=== PATIENT | male | born 1995 | race Caucasian/White ===

== ENCOUNTER 2021-06-15 18:39 | Emergency (ER) | payer BC, OTHER ==
[~2021-06-15] VITALS: Ht 188 cm; Wt 96.4 kg
[2021-06-15] MEDS ORDERED: HALOPERIDOL LACT 5 MG/ML VIAL. IVP ONE (19:30)
[2021-06-15] MEDS ORDERED: diphenhydrAMINE 50 MG/ML VIAL ONE (19:50)
[2021-06-15 20:00] LABS: BARBITURATES NEG (NEG); BENZODIAZEPINES NEG (NEG); CANNABINOIDS NEG (NEG); COCAINE NEG (NEG); METHADONE NEG (NEG); OPIATES NEG (NEG); PHENCYCLIDINE NEG (NEG)
[2021-06-15] MEDS ORDERED: diphenhydrAMINE 50 MG/ML VIAL IM ONE (20:00)
[2021-06-15] MEDS ORDERED: HALOPERIDOL LACT 5 MG/ML VIAL. IM ONE (20:00)
[2021-06-15 20:05] LABS: AMPHETAMINE/METHAMPHETAMINE NEG (NEG)
[2021-06-15 20:31] LABS: BASO % 0 % (0-3); EOS % 0 % (0-3); HEMATOCRIT 54.3 % (39.0-53.0); HEMOGLOBIN 17.7 g/dL (13.0-17.5); LYMPH # 2.3 x10^3/uL (1.0-4.8); LYMPH % 18 % (24-48); MEAN CORPUSCULAR HEMOGLOBIN 32 pg (25-35); MEAN CORPUSCULAR HGB CONC 33 g/dL (31-37); MEAN CORPUSCULAR VOLUME 97 fL (79-100); MONO # 0.9 x10^3/uL (0.0-1.1); MONO % 7 % (0-9); NEUT # 9.3 x10^3uL (1.8-7.7); NEUT % 74 % (31-73); PLATELET COUNT 290 x10^3/uL (140-400); RED BLOOD COUNT 5.62 x10^6/uL (4.30-5.70); RED CELL DISTRIBUTION WIDTH 12.6 % (11.5-14.5); WHITE BLOOD COUNT 12.6 x10^3/uL (4.0-11.0)
--- NOTE | 2021-06-15 20:41 | PHYS DOC ---
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 Patient has no active complaints. Reports he drove home from his parents house in [place], [place] this morning, followed his mothers' car. Did not show up for work today, was not answering his phone, so his father called 911 for a home check and also d/w his boss. Patient gives me consent to talk to both parents and his boss. I spoke to patient's father over the phone (Manuel), who informed me that patient was acting bizarre this week, ta lking about time traveling and hallucinating. Last night patient was staring off into space for approximately a half hour, then randomly jumped up and grabbed a notebook, slammed it against the door and stated " I do not want to kill you but you're causing all my problems." Patient was also stating, "Wow that's bizarre, do see that?" Pt has no prior psychiatric history. Does have a fear of spiders and doesn't like going out in public. Pt told his employer he missed work because he was heading to the airport for his trip to [place]-his flight is for July 03. Pt denies any alcohol or drug use. Later admits he has not slept in the past few days. Patient denies any suicidal or homicidal ideations. (ELISABET LUGO DO) HPI: Patient came to the emergency department overnight and was initially seen by Dr. Lugo. Had some altered mental status. He did receive medications including Haldol. Currently sleeping. (APRIL DAY DO) Review of Systems: Review of Systems: Constitutional: Denies fever or chills Eyes: Denies change in visual acuity HENT: Denies nasal congestion or sore throat Respiratory: Denies cough or shortness of breath Cardiovascular: Denies chest pain or edema GI: Denies nausea or vomiting Musculoskeletal: Denies back pain or joint pain Integument: Denies rash or diaphoresis Neurologic: Denies headache, focal weakness or sensory changes Endocrine: Denies polyuria or polydipsia Lymphatic: Denies swollen glands Psychiatric: Denies depression or anxiety (ELISABET LUGO DO) Review of Systems: Constitutional: Negative HEENT: Negative Cardiovascular: Negative Gastrointestinal: Negative : Negative Psychiatric: As documented by Dr. Lugo (APRIL DAY DO) Current Medications: Current Meds: Current Medications Medications (Trade) Dose Ordered Sig/Jesus Start Time Stop Time Status Last Admin Dose Admin Diphenhydramine HCl (Benadryl) 50 mg STK-MED ONCE 06/15/21 19:50 06/15/21 19:50 DC Haloperidol Lactate (Haldol) 5 mg 1X ONCE 06/15/21 20:00 06/15/21 20:01 DC 06/15/21 20:11 5 MG (ELISABET LUGO DO) Allergies: Allergies: Allergies Coded Allergies Type Severity Reaction Last Updated Verified No Known Drug Allergies 06/15/21 No (ELISABET LUGO DO) Physical Exam: PE: Constitutional: no acute distress, unkept but non-toxic appearance. HENT: Normocephalic, atraumatic, dry mucous membranes Eyes: Mydriatic pupils, EOMI, conjunctiva normal, no discharge. Neck: Normal range of motion, supple, Cardiovascular: S1/2 present, regular rhythm Lungs & Thorax: Speaking in full sentences, bilateral equal chest rise, no tachypnea or increased work of breathing Abdomen: soft, no tenderness, Skin: Warm, dry, no erythema, no rash. [] Back: No tenderness, no CVA tenderness. [] Extremities: No tenderness, no cyanosis, Neurologic: Alert and oriented X 3-is aware of the month, day and year but very confused regarding details of today, normal motor function, normal sensory function, no focal deficits noted. [] Psychologic: uncooperative, flat affect, appears paranoid and ruminating, states "you all are aliens" (ELISABET LUGO DO) PE: General: Awake and alert, calm and cooperative. No distress HEENT: Grossly negative. Respiration, normal effort. Cardiovascular CV: Normal pulses and heart rate BACK: Normal range of motion Neuro: Normal gait, alert and oriented in all spheres, moves all extremities. Grossly normal exam Psych: Calm, cooperative, normal tempo of speech. Answers questions appro priately. Has good insight and foresight. Not suicidal. No current hallucinations. (APRIL DAY DO) Current Patient Data: Labs: Laboratory Tests Test 06/15/21 19:28 Urine Opiates Screen Neg (NEG) Urine Methadone Screen Neg (NEG) Urine Barbiturates Neg (NEG) Urine Phencyclidine Screen Neg (NEG) Urine Amphetamine/Methamphetamine Neg (NEG) Urine Benzodiazepines Screen Neg (NEG) Urine Cocaine Screen Neg (NEG) Urine Cannabinoids Screen Neg (NEG) Urine Ethyl Alcohol Neg (NEG) (ELISABET LUGO DO) EKG: EKG: [] (ELISABET LUGO DO) Radiology/Procedures: Radiology/Procedures: IMAGING REPORT Signed PATIENT: KENNA STOCKTON EACCOUNT: [id number] : 1995 LOCATION: ER AGE: 25 SEX: M EXAM STATUS: REG ER ORD. PHYSICIAN: ELISABET LUGO DO REASON: AMS, confusion PROCEDURE: CT HEAD WO CONTRAST CT head without contrast dated 06/15/2021 9:07 PM Comparison: None CLINICAL INDICATION: Altered mental status. Confusion. TECHNIQUE: Contiguous axial imaging of the head was performed from skull base to vertex. One or more of the following individualized dose reduction techniques were utilized for this examination: 1. Automated exposure control 2. Adjustment of the mA and/or kV according to patient size 3. Use of iterative reconstruction technique. FINDINGS: Ventricles and sulci are within normal limits for age. No midline shift or mass effect. Brain parenchyma is of normal attenuation. No hemorrhage or extra-axial collection. Posterior fossa and brainstem unremarkable. There is mild cerebellar tonsil ectopia with cervical tonsils extending about 5 mm below the foramen magnum. Visualized paranasal sinuses and mastoid air cells are clear. No apparent calvarial abnormality. IMPRESSION: 1. No evidence of acute cranial hemorrhage or mass. 2. Mild cerebellar tonsil ectopia. Electronically signed by: Grant Oh MD (06/15/2021 9:08 PM) [facility] [place] DICTATED AND SIGNED BY: GRANT OH MD DATE: 06/15/212106 CC: PCP,NO; ELISABET LUGO DO ~MTH0 0 (ELISABET LUGO DO) Heart Score: C/O Chest Pain: No Risk Factors: Risk Factors: DM, Current or recent (<one month) smoker, HTN, HLP, family history of CAD, obesity. Risk Scores: Score 0 - 3: 2.5% MACE over next 6 weeks - Discharge Home Score 4 - 6: 20.3% MACE over next 6 weeks - Admit for Clinical Observation Score 7 - 10: 72.7% MACE over next 6 weeks - Early Invasive Strategies (ELISABET LUGO DO) C/O Chest Pain: No (APRIL DAY DO) Course & Med Decision Making: Course & Med Decision Making Pertinent Labs and Imaging studies reviewed. (See chart for details) Concern for new onset paranoid schizophrenia versus psychosis-both parents in ag reement for involuntary psych admission. Drug screen negative. Patient required medication for his and staff safety. Patient with anion gap of 17-suspect dehydration given clinical exam. Was given uncontrolled fluids and labs were redrawn. Patient pending PCR Covid test and PAT team consultation (unable to assess 2/2 sedation). Due to shift change patient was signed out to oncoming physician Dr. Day for further medical evaluation and disposition. Mother, Elisabet Stockton, Father, Manuel Stockton, (ELISABET LUGO DO) Course & Med Decision Making I assumed care of this patient at shift turnover from Dr. Lugo. At that time, PAT evaluation pending. Patient is currently resting comfortably and sleeping. 10:00: PAT evaluation complete. Patient returned to baseline mental status. Stable for discharge home. Will follow up with [facility] for counseling and ongoing evaluation. No acute cause for his change in mental status was identified today but he does not warrant admission or involuntary admission at this time. (APRIL DAY DO) Dragon Disclaimer: Dragon Disclaimer: This electronic medical record was generated, in whole or in part, using a voice recognition dictation system. (ELISABET LUGO DO) Departure Departure: Impression: Primary Impression: Acute paranoia Additional Impressions: Visual hallucinations Agitation requiring sedation protocol Disposition: HOME / SELF CARE / HOMELESS Condition: GOOD Referrals: PCP,NO (PCP) Patient Instructions: Hallucinations and Delusions ELISABET LUGO DO Jun 15, 2021 20:41 APRIL DAY DO Jun 16, 2021 09:53
[2021-06-15 20:42] LABS: CALCIUM 10.4 mg/dL (8.5-10.1); CREATININE 1.3 mg/dL (0.7-1.3); GFR 68.4; POTASSIUM 3.9 mmol/L (3.5-5.1)
[2021-06-15 20:47] LABS: ALBUMIN 5.2 g/dL (3.4-5.0); ALBUMIN/GLOBULIN RATIO 1.4 (1.0-1.7); TOTAL BILIRUBIN 0.8 mg/dL (0.2-1.0)
--- NOTE | 2021-06-15 21:11 | RAD ---
CT head without contrast dated 06/15/2021 9:07 PM Comparison: None CLINICAL INDICATION: Altered mental status. Confusion. TECHNIQUE: Contiguous axial imaging of the head was performed from skull base to vertex. One or more of the following individualized dose reduction techniques were utilized for this examinat ion: 1. Automated exposure control 2. Adjustment of the mA and/or kV according to patient size 3. Use of iterative reconstruction technique. FINDINGS: Ventricles and sulci are within normal limits for age. No midline shift or mass effect. Brain parench yma is of normal attenuation. No hemorrhage or extra-axial collection. Posterior fossa and brainstem unremarkable. There is mild cerebellar tonsil ectopia with cervical tonsils extending about 5 mm belo w the foramen magnum. Visualized paranasal sinuses and mastoid air cells are clear. No apparent calvarial abnormality. IMPRESSION: 1. No evidence of acute cranial hemorrhage or mass. 2. Mild cerebellar tonsil ectopia. Electronically signed by: Grant Oh MD (06/15/2021 9:08 PM) [place]
[2021-06-16] MEDS ORDERED: RINGERS LACTATED IV ONE (03:00)
[2021-06-16 05:16] LABS: CALCIUM 8.7 mg/dL (8.5-10.1); GFR 92.6
[2021-06-16 05:18] LABS: ALBUMIN/GLOBULIN RATIO 1.3 (1.0-1.7); TOTAL BILIRUBIN 0.4 mg/dL (0.2-1.0); TOTAL PROTEIN 7.1 g/dL (6.4-8.2)
[2021-06-16 09:00] VITALS: BP 129/74
== END 2021-06-16 10:47 | disposition home or self-care (01) ==
LOC: ER 18:39
DX: F22 Delusional disorders (principal); R45.1 Restlessness and agitation; Z20.822 Contact with and (suspected) exposure to COVID-19
CPT/HCPCS: 36415; 70450; 80053; 80307; 85025; 87426; 96361; 96372; 96374; 99285; C9803; G0480; J1200; J1630; J7120; U0003; 96360